=== PATIENT | female | born 1980 | race Caucasian/White ===

== ENCOUNTER → 2021-07-24 | Outpatient (CLI) | payer MEDICARE, BC ==
--- NOTE | 2021-07-24 14:29 | US ---
EXAMINATION TYPE: US abdomen complete DATE OF EXAM: 07/24/2021 COMPARISON: 07/07/2010 CLINICAL HISTORY: R10.12 LUQ PAIN. GB removed. Nausea x 5 days. EXAM MEASUREMENTS: Liver Length: 17.5 cm CBD: 0.9 cm Spleen: 11.5 cm Right Kidney: 9.0 x 4.3 x 4.0 cm Left Kidney: 10.2 x 4.8 x 5.1 cm Pancreas: Echogenic in appearance. Tail obscured by overlying bowel gas Liver: wnl Gallbladder: Surgically absent Evidence for sonographic Darling's sign: neg CBD: wnl Spleen: wnl Right Kidney: Inferior pole obscured by bowel gas Left Kidney: No hydronephrosis or masses seen Upper IVC: wnl Abd Aorta: No AAA visualized IMPRESSION: 1. Unremarkable post cholecystectomy abdomen ultrasound
== END | disposition home or self-care (01) ==
LOC: RADUSWWP 13:32
PROVIDERS: ATTEND Family Medicine
DX: R10.12 Left upper quadrant pain (principal); R11.0 Nausea; Z90.49 Acquired absence of other specified parts of digestive tract
CPT/HCPCS: 76700

== ENCOUNTER 2021-07-26 15:17 | Emergency (ER) | payer MEDICARE, BC ==
[2021-07-26 15:45] VITALS: BP 146/86; PULSE 122; RESP 20; TEMP 98.7
[2021-07-26] MEDS ORDERED: HYDROmorphone 1 MG/ML 1 ML SYRINGE IM STA (18:40)
--- NOTE | 2021-07-26 18:44 | ED ---
General Adult HPI - General Chief complaint: Neck Pain/Injury Stated complaint: neck pain Time Seen by Provider: 07/26/21 18:30 Source: patient, RN notes reviewed Mode of arrival: ambulatory Limitations: no limitations - History of Present Illness Initial comments: Patient is a pleasant 41-year-old female patient to the emergency Department with neck discomfort. Onset of symptoms was yesterday afternoon. Discomfort has been persistent. Discomfort increases with movement. No trauma. No history of chronic back problems however patient does have chronic pain associated with lupus and fibromyalgia. No weakness. No fever. - Related Data Home Medications Medication Instructions Recorded Confirmed ARIPiprazole [Abilify] 10 mg PO DAILY 07/26/21 07/26/21 Cetirizine HCl [Zyrtec] 10 mg PO DAILY 07/26/21 07/26/21 Cyclobenzaprine [Flexeril] 5 - 10 mg PO BID PRN 07/26/21 07/26/21 Desvenlafaxine Succinate [Pristiq 50 mg PO DAILY 07/26/21 07/26/21 ER] Dextroamphetamine/Amphetamine 10 mg PO BID 07/26/21 07/26/21 [Adderall] Dicyclomine [Bentyl] 10 mg PO TID PRN 07/26/21 07/26/21 Etodolac 400 mg PO DAILY PRN 07/26/21 07/26/21 Fluticasone Nasal [place] [Flonase 1 spray EA NOSTRIL DAILY PRN 07/26/21 07/26/21 Nasal [place]] Hydroxychloroquine Sulfate 400 mg PO BID 07/26/21 07/26/21 [Plaquenil] Loratadine [Claritin] 10 mg PO DAILY 07/26/21 07/26/21 Meclizine [Antivert] 25 mg PO DAILY PRN 07/26/21 07/26/21 Omeprazole 20 mg PO DAILY 07/26/21 07/26/21 Ondansetron Odt [Zofran Odt] 4 mg PO Q8HR PRN 07/26/21 07/26/21 clonazePAM [KlonoPIN] 0.5 mg PO BID PRN 07/26/21 07/26/21 Previous Rx's Medication Instructions Recorded Orphenadrine [Norflex] 100 mg PO Q12H PRN #15 tab 07/26/21 Allergies Allergy/AdvReac Type Severity Reaction Status Date / Time Latex, Natural Rubber Allergy Rash/Hives Verified 07/26/21 15:46 Review of Systems ROS Statement: Those systems with pertinent positive or pertinent negative responses have been documented in the HPI. ROS Other: All systems not noted in ROS Statement are negative. Constitutional: Denies: fever Eyes: Denies: eye pain ENT: Denies: ear pain Respiratory: Denies: cough, dyspnea Cardiovascular: Denies: chest pain Endocrine: Denies: fatigue Gastrointestinal: Denies: abdominal pain Musculoskeletal: Reports: as per HPI Skin: Denies: rash Neurological: Denies: headache Past Medical History Additional Past Medical History / Comment(s): Fibro.Lupus, OS, IBS History of Any Multi-Drug Resistant Organisms: None Reported Past Surgical History: No Surgical Hx Reported Smoking Status: Current every day smoker Past Alcohol Use History: Occasional Past Drug Use History: None Reported, Marijuana General Exam Limitations: no limitations General appearance: alert, in no apparent distress Head exam: Present: normocephalic Eye exam: Present: normal appearance ENT exam: Present: normal oropharynx Neck exam: Present: tenderness (Left sided neck extending to trapezius) Respiratory exam: Present: normal lung sounds bilaterally Cardiovascular Exam: Present: regular rate, normal rhythm GI/Abdominal exam: Present: soft. Absent: tenderness Extremities exam: Present: normal inspection Back exam: Present: tenderness (Left-sided trapezius) Neurological exam: Present: alert. Absent: motor sensory deficit Expanded Sensory exam: Upper Extremity Light Touch: Normal Motor strength exam: RUE: 5, LUE: 5 Eye Response: (4) open spontaneously Motor Response: (6) obeys commands Verbal Response: (5) oriented Psychiatric exam: Present: normal affect, normal mood Skin exam: Present: normal color Course Vital Signs 07/26/21 15:43 Temperature 98.7 F Pulse Rate 122 H Respiratory 20 Rate Blood Pressure 146/86 O2 Sat by Pulse 100 Oximetry Medical Decision Making - Medical Decision Making Patient reevaluated and improved with hydromorphone. Patient updated on results and need for follow-up. Patient requests a different muscle relaxer than what she takes normally. Patient advised not to take them together. She is on NSAIDs normally. - Radiology Data Radiology results: image reviewed (Cervical spine x-ray shows no acute process) Disposition Clinical Impression: Trapezius strain Disposition: HOME SELF-CARE Condition: Stable Instructions (If sedation given, give patient instructions): Cervical Strain (ED) Additional Instructions: Please follow-up with primary care physician in the next couple days for recheck. Restriction for muscle relaxer has been sent to pharmacy, do not use this with her other one. Return for weakness, worsening or change in symptoms, or other concerns. Prescriptions: Orphenadrine [Norflex] 100 mg PO Q12H PRN #15 tab PRN Reason: Muscle Pain Is patient prescribed a controlled substance at d/c from ED?: No Referrals: Laurita Mcbride MD [Primary Care Provider] - 1-2 days Time of Disposition: 20:19
--- NOTE | 2021-07-26 19:41 | XR ---
PROCEDURE: XR cervical spine comp - 5V DATE AND TIME: 07/26/2021 7:07 PM CLINICAL INDICATION: PHH; pain TECHNIQUE: Department protocol COMPARISON: None FINDINGS: There is no fracture or malalignment. The soft tissues are unremarkable. IMPRESSION: NO ACUTE PROCESS.
[2021-07-26] MEDS ORDERED: ACET/COD 300 MG/30 MG STARTER PACK 6 TAB BTL PO STA (20:20)
== END 2021-07-26 21:18 | disposition home or self-care (01) ==
LOC: EC 15:17
DX: S46.812A Strain of other muscles, fascia and tendons at shoulder and upper arm level, left arm, initial encounter (principal); F17.200 Nicotine dependence, unspecified, uncomplicated; Z79.899 Other long term (current) drug therapy; X58.XXXA Exposure to other specified factors, initial encounter
CPT/HCPCS: 72050; 99283; 96372; J1170

== ENCOUNTER 2022-02-07 21:04 | Emergency (ER) | payer BC, MEDICARE ==
[2022-02-07] MEDS ORDERED: ACETAMINOPHEN TAB 325 MG TAB PO STA (22:43)
[2022-02-07] MEDS ORDERED: SODIUM CHLORIDE 0.9% 500 ML 500 ML IV STA (22:43)
--- NOTE | 2022-02-07 22:59 | ED ---
General Adult HPI - General Chief complaint: Nausea/Vomiting/Diarrhea Stated complaint: N/V, Fever,Chills Time Seen by Provider: 02/07/22 22:15 Source: patient, family Mode of arrival: ambulatory Limitations: no limitations - History of Present Illness Initial comments: This patient is a 41-year-old woman who presents to have evaluation for which she suspects is a reaction to iron infusion. The patient states she has history of anemia and that her physician sent her to have iron infusion on Friday. The following day she started having some fevers, congestion, body aches, vomiting. Does have continued despite taking Tylenol. Onset/Timin -: days(s) Consistency: constant Improves with: none Worsens with: none Associated Symptoms: cough, nausea/vomiting Treatments Prior to Arrival: other (Tylenol) - Related Data Home Medications Medication Instructions Recorded Confirmed ARIPiprazole [Abilify] 10 mg PO DAILY 07/26/21 07/26/21 Cetirizine HCl [Zyrtec] 10 mg PO DAILY 07/26/21 07/26/21 Cyclobenzaprine [Flexeril] 5 - 10 mg PO BID PRN 07/26/21 07/26/21 Desvenlafaxine Succinate [Pristiq 50 mg PO DAILY 07/26/21 07/26/21 ER] Dextroamphetamine/Amphetamine 10 mg PO BID 07/26/21 07/26/21 [Adderall] Dicyclomine [Bentyl] 10 mg PO TID PRN 07/26/21 07/26/21 Etodolac 400 mg PO DAILY PRN 07/26/21 07/26/21 Fluticasone Nasal [place] [Flonase 1 spray EA NOSTRIL DAILY PRN 07/26/21 07/26/21 Nasal [place]] Hydroxychloroquine Sulfate 400 mg PO BID 07/26/21 07/26/21 [Plaquenil] Loratadine [Claritin] 10 mg PO DAILY 07/26/21 07/26/21 Meclizine [Antivert] 25 mg PO DAILY PRN 07/26/21 07/26/21 Omeprazole 20 mg PO DAILY 07/26/21 07/26/21 Ondansetron Odt [Zofran Odt] 4 mg PO Q8HR PRN 07/26/21 07/26/21 clonazePAM [KlonoPIN] 0.5 mg PO BID PRN 07/26/21 07/26/21 Previous Rx's Medication Instructions Recorded Orphenadrine [Norflex] 100 mg PO Q12H PRN #15 tab 07/26/21 Allergies Allergy/AdvReac Type Severity Reaction Status Date / Time Influenza Virus Vaccines Allergy Unknown Verified 02/07/22 21:46 Latex, Natural Rubber Allergy Rash/Hives Verified 02/07/22 21:46 Review of Systems ROS Statement: Those systems with pertinent positive or pertinent negative responses have been documented in the HPI. ROS Other: All systems not noted in ROS Statement are negative. Constitutional: Reports: fever, chills. Denies: weakness Eyes: Denies: eye pain, vision change ENT: Reports: congestion. Denies: ear pain, throat pain Respiratory: Reports: cough. Denies: dyspnea, wheezes, hemoptysis Cardiovascular: Denies: chest pain, palpitations, edema Gastrointestinal: Reports: nausea, vomiting. Denies: abdominal pain, diarrhea, constipation, hematemesis, melena, hematochezia Genitourinary: Denies: dysuria, frequency, hematuria Musculoskeletal: Reports: myalgia. Denies: back pain Skin: Denies: rash Neurological: Denies: headache, weakness, numbness Past Medical History Additional Past Medical History / Comment(s): Fibro.Lupus, OS, IBS History of Any Multi-Drug Resistant Organisms: None Reported Past Surgical History: No Surgical Hx Reported Past Psychological History: No Psychological Hx Reported Smoking Status: Current every day smoker Past Alcohol Use History: Occasional Past Drug Use History: None Reported, Marijuana General Exam Limitations: no limitations General appearance: alert, in no apparent distress Head exam: Present: atraumatic, normocephalic Eye exam: Present: normal appearance. Absent: scleral icterus, conjunctival injection Neck exam: Present: normal inspection, full ROM. Absent: meningismus Respiratory exam: Present: normal lung sounds bilaterally. Absent: respiratory distress, wheezes, rales, rhonchi, stridor Cardiovascular Exam: Present: normal rhythm, tachycardia, normal heart sounds. Absent: systolic murmur, diastolic murmur, rubs, gallop GI/Abdominal exam: Present: soft. Absent: distended, tenderness, guarding, rebound, rigid, mass Extremities exam: Present: normal inspection, normal capillary refill. Absent: pedal edema, calf tenderness Back exam: Present: normal inspection. Absent: CVA tenderness (R), CVA t enderness (L) Neurological exam: Present: alert Skin exam: Present: warm, dry, intact, normal color. Absent: rash Course Vital Signs 02/07/22 02/07/22 02/08/22 21:41 23:48 00:21 Temperature 101.3 F H 99.8 F H Pulse Rate 130 H 122 H Respiratory 20 18 Rate Blood Pressure 125/85 99/50 O2 Sat by Pulse 98 98 Oximetry Medical Decision Making - Medical Decision Making This patient is a 41-year-old woman presenting to have evaluation of fever, nausea and vomiting after an iron infusion. The workup here does not reveal any definite infection. Patient is feeling better after IV fluid and medication. I discussed admitting her overnight for further observation but the patient states she would prefer to go home. We discussed the appropriate further care and follow-up as well as return parameters. - Lab Data Result diagrams: 02/07/22 22:53 02/07/22 22:53 Lab Results 02/07/22 02/07/22 02/07/22 Range/Units 22:53 22:53 22:53 WBC 13.5 H (3.8-10.6) k/uL RBC 4.93 (3.80-5.40) m/uL Hgb 13.3 (11.4-16.0) gm/dL Hct 42.4 (34.0-46.0) % MCV 86.0 (80.0-100.0) fL MCH 26.9 (25.0-35.0) pg MCHC 31.3 (31.0-37.0) g/dL RDW 14.4 (11.5-15.5) % Plt Count 313 (150-450) k/uL MPV 7.9 Neutrophils % 86 % Lymphocytes % 9 % Monocytes % 3 % Eosinophils % 1 % Basophils % 1 % Neutrophils # 11.6 H (1.3-7.7) k/uL Lymphocytes # 1.2 (1.0-4.8) k/uL Monocytes # 0.4 (0-1.0) k/uL Eosinophils # 0.1 (0-0.7) k/uL Basophils # 0.1 (0-0.2) k/uL Sodium 138 (137-145) mmol/L Potassium 3.7 (3.5-5.1) mmol/L Chloride 104 (98-107) mmol/L Carbon Dioxide 22 (22-30) mmol/L Anion Gap 12 mmol/L BUN 8 (7-17) mg/dL Creatinine 1.05 H (0.52-1.04) mg/dL Est GFR (CKD-EPI)AfAm 77 (>60 ml/min/1.73 sqM) Est GFR (CKD-EPI)NonAf 67 (>60 ml/min/1.73 sqM) Glucose 115 H (74-99) mg/dL Plasma Lactic Acid Ziggy 1.8 (0.7-2.0) mmol/L Calcium 9.8 (8.4-10.2) mg/dL Total Bilirubin 0.6 (0.2-1.3) mg/dL AST 27 (14-36) U/L ALT 28 (4-34) U/L Alkaline Phosphatase 118 (38-126) U/L Total Protein 8.5 H (6.3-8.2) g/dL Albumin 5.2 H (3.5-5.0) g/dL Urine Color Urine Appearance (Clear) Urine pH (5.0-8.0) Ur Specific [place] (1.001-1.035) Urine Protein (Negative) Urine Glucose (UA) (Negative) Urine Ketones (Negative) Urine Blood (Negative) Urine Nitrite (Negative) Urine Bilirubin (Negative) Urine Urobilinogen (<2.0) mg/dL Ur Leukocyte Esterase (Negative) Urine RBC (0-5) /hpf Urine WBC (0-5) /hpf Ur Squamous Epith Cells (0-4) /hpf Amorphous Sediment (None) /hpf Urine Bacteria (None) /hpf Hyaline Casts (0-2) /lpf Urine Mucus (None) /hpf Coronavirus (PCR) (Not Detectd) Influenza Type A RNA (Not Detectd) Influenza Type B (PCR) (Not Detectd) 02/07/22 02/08/22 02/08/22 Range/Units 22:53 00:24 01:04 WBC (3.8-10.6) k/uL RBC (3.80-5.40) m/uL Hgb (11.4-16.0) gm/dL Hct (34.0-46.0) % MCV (80.0-100.0) fL MCH (25.0-35.0) pg MCHC (31.0-37.0) g/dL RDW (11.5-15.5) % Plt Count (150-450) k/uL MPV Neutrophils % % Lymphocytes % % Monocytes % % Eosinophils % % Basophils % % Neutrophils # (1.3-7.7) k/uL Lymphocytes # (1.0-4.8) k/uL Monocytes # (0-1.0) k/uL Eosinophils # (0-0.7) k/uL Basophils # (0-0.2) k/uL Sodium (137-145) mmol/L Potassium (3.5-5.1) mmol/L Chloride (98-107) mmol/L Carbon Dioxide (22-30) mmol/L Anion Gap mmol/L BUN (7-17) mg/dL Creatinine (0.52-1.04) mg/dL Est GFR (CKD-EPI)AfAm (>60 ml/min/1.73 sqM) Est GFR (CKD-EPI)NonAf (>60 ml/min/1.73 sqM) Glucose (74-99) mg/dL Plasma Lactic Acid Ziggy (0.7-2.0) mmol/L Calcium (8.4-10.2) mg/dL Total Bilirubin (0.2-1.3) mg/dL AST (14-36) U/L ALT (4-34) U/L Alkaline Phosphatase (38-126) U/L Total Protein (6.3-8.2) g/dL Albumin (3.5-5.0) g/dL Urine Color Light Brown Urine Appearance Turbid H (Clear) Urine pH 5.5 (5.0-8.0) Ur Specific [place] 1.031 (1.001-1.035) Urine Protein 2+ H (Negative) Urine Glucose (UA) Trace H (Negative) Urine Ketones Trace H (Negative) Urine Blood Moderate H (Negative) Urine Nitrite Negative (Negative) Urine Bilirubin Negative (Negative) Urine Urobilinogen 3.0 (<2.0) mg/dL Ur Leukocyte Esterase Negative (Negative) Urine RBC 2 (0-5) /hpf Urine WBC 2 (0-5) /hpf Ur Squamous Epith Cells 4 (0-4) /hpf Amorphous Sediment Occasional H (None) /hpf Urine Bacteria Occasional H (None) /hpf Hyaline Casts 38 H (0-2) /lpf Urine Mucus Many H (None) /hpf Coronavirus (PCR) Not Detected (Not Detectd) Influenza Type A RNA Not Detected (Not Detectd) Influenza Type B (PCR) Not Detected (Not Detectd) Disposition Clinical Impression: Fever Disposition: HOME SELF-CARE Condition: Good Instructions (If sedation given, give patient instructions): Fever in Adults (ED), Acute Nausea and Vomiting (ED) Is patient prescribed a controlled substance at d/c from ED?: No Referrals: Laurita Mcbride MD [Primary Care Provider] - 1-2 days Time of Disposition: 02:00
[2022-02-07] MEDS ORDERED: ONDANSETRON 4 MG/2 ML VIAL IVP STA (23:05)
--- NOTE | 2022-02-07 23:05 | XR ---
EXAMINATION TYPE: XR chest 1V portable DATE OF EXAM: 02/07/2022 COMPARISON: None HISTORY: Fever and cough TECHNIQUE: FINDINGS: Heart and mediastinum are normal. Lungs are clear. Diaphragm is normal. Bony thorax appears normal. IMPRESSION: Normal chest
[2022-02-07 23:48] VITALS: RESP 18
[2022-02-07 23:48] LABS: Basophils # (A) 0.1 k/uL (0-0.2); Basophils % (A) 1 %; Eosinophils # (A) 0.1 k/uL (0-0.7); Eosinophils % (A) 1 %; HCT 42.4 % (34.0-46.0); HGB 13.3 gm/dL (11.4-16.0); Lymphocytes # (A) 1.2 k/uL (1.0-4.8); Lymphocytes % (A) 9 %; MCH 26.9 pg (25.0-35.0); MCHC 31.3 g/dL (31.0-37.0); Mean Platelet Volume 7.9; Monocytes # (A) 0.4 k/uL (0-1.0); Monocytes % (A) 3 %; Neutrophils # (A) 11.6 k/uL (1.3-7.7); Neutrophils % (A) 86 %; Platelet Count 313 k/uL (150-450); RBC 4.93 m/uL (3.80-5.40); RDW 14.4 % (11.5-15.5); WBC 13.5 k/uL (3.8-10.6)
[2022-02-07 23:55] LABS: Albumin 5.2 g/dL (3.5-5.0); Calcium 9.8 mg/dL (8.4-10.2); Potassium 3.7 mmol/L (3.5-5.1); Total Bilirubin 0.6 mg/dL (0.2-1.3); Total Protein 8.5 g/dL (6.3-8.2)
[2022-02-08 00:58] LABS: Amorphous Sediment,Urine Occasional /hpf; Appearance,Urine Turbid (Clear); Bacteria,Urine Occasional /hpf; Bilirubin,Urine Negative (Negative); Blood,Urine Moderate (Negative); Color,Urine Light Brown; Glucose,Urine (UA) Trace (Negative); Hyaline Casts,Urine 38 /lpf (0-2); Ketones,Urine Trace (Negative); Leukocyte Esterase,Urine Negative (Negative); Mucus,Urine Many /hpf; Nitrite,Urine Negative (Negative); PH, Urine 5.5 (5.0-8.0); Protein,Urine 2+ (Negative); RBC,Urine 2 /hpf (0-5); Specific Gravity,Urine 1.031 (1.001-1.035); Squamous Epithelial Cell,Urine 4 /hpf (0-4); WBC,Urine 2 /hpf (0-5)
[2022-02-08 03:02] VITALS: BP 128/87; PULSE 105; TEMP 98.5
== END 2022-02-08 02:58 | disposition home or self-care (01) ==
LOC: EC 21:04
DX: R50.9 Fever, unspecified (principal); F17.200 Nicotine dependence, unspecified, uncomplicated; Z20.822 Contact with and (suspected) exposure to COVID-19; Z88.7 Allergy status to serum and vaccine; Z91.048 Other nonmedicinal substance allergy status
CPT/HCPCS: 36415; 80053; 83605; 85025; 81001; 87502; 87635; 71045; 99284; 96374; J2405

== ENCOUNTER 2022-05-19 15:23 | Emergency (ER) | payer BC, MEDICARE ==
[2022-05-19 15:37] VITALS: TEMP 99
--- NOTE | 2022-05-19 16:20 | XR ---
EXAMINATION TYPE: XR chest 2V DATE OF EXAM: 05/19/2022 COMPARISON: 02/07/2022 HISTORY: Cough TECHNIQUE: Frontal and lateral views of the chest are obtained. FINDINGS: There is no focal air space opacity, pleural effusion, or pneumothorax seen. The cardiac silhouette size is within normal limits. The osseous structures are intact. IMPRESSION: No acute cardiopulmonary process.
--- NOTE | 2022-05-19 16:28 | ED ---
General Adult HPI - General Chief complaint: Upper Respiratory Infection Stated complaint: JOSH Time Seen by Provider: 05/19/22 16:01 Source: patient, RN notes reviewed Mode of arrival: ambulatory Limitations: no limitations - History of Present Illness Initial comments: 42-year-old female presents emergency Department chief complaint cough congestion. Patient states she has been sick for last 4 days. Patient states that her cough is productive. Patient states she has recurrent bronchitis does admit that she is a daily smoker one pack per day. Patient has a chest pain she states she's had increased nasal congestion, fever, sore throat and bodyaches. Patient denies any sick contacts. - Related Data Home Medications Medication Instructions Recorded Confirmed ARIPiprazole [Abilify] 10 mg PO DAILY 07/26/21 07/26/21 Cetirizine HCl [Zyrtec] 10 mg PO DAILY 07/26/21 07/26/21 Cyclobenzaprine [Flexeril] 5 - 10 mg PO BID PRN 07/26/21 07/26/21 Desvenlafaxine Succinate [Pristiq 50 mg PO DAILY 07/26/21 07/26/21 ER] Dextroamphetamine/Amphetamine 10 mg PO BID 07/26/21 07/26/21 [Adderall] Dicyclomine [Bentyl] 10 mg PO TID PRN 07/26/21 07/26/21 Etodolac 400 mg PO DAILY PRN 07/26/21 07/26/21 Fluticasone Nasal [place] [Flonase 1 spray EA NOSTRIL DAILY PRN 07/26/21 07/26/21 Nasal [place]] Hydroxychloroquine Sulfate 400 mg PO BID 07/26/21 07/26/21 [Plaquenil] Loratadine [Claritin] 10 mg PO DAILY 07/26/21 07/26/21 Meclizine [Antivert] 25 mg PO DAILY PRN 07/26/21 07/26/21 Omeprazole 20 mg PO DAILY 07/26/21 07/26/21 Ondansetron Odt [Zofran Odt] 4 mg PO Q8HR PRN 07/26/21 07/26/21 clonazePAM [KlonoPIN] 0.5 mg PO BID PRN 07/26/21 07/26/21 Previous Rx's Medication Instructions Recorded Orphenadrine [Norflex] 100 mg PO Q12H PRN #15 tab 07/26/21 Albuterol Sulfate [Proair Hfa] 1 - 2 puff INHALATION Q4HR PRN 05/19/22 #8.5 gm Azithromycin [Zithromax Z Pack] 0 tab PO DIRECTED #6 tab 05/19/22 predniSONE 50 mg PO DAILY #5 tab 05/19/22 Allergies Allergy/AdvReac Type Severity Reaction Status Date / Time hydrocodone Allergy Unknown Verified 05/19/22 15:37 Influenza Virus Vaccines Allergy Unknown Verified 05/19/22 15:36 Latex, Natural Rubber Allergy Rash/Hives Verified 05/19/22 15:36 Review of Systems ROS Statement: Those systems with pertinent positive or pertinent negative responses have been documented in the HPI. ROS Other: All systems not noted in ROS Statement are negative. Past Medical History Additional Past Medical History / Comment(s): Fibro.Lupus, OS, IBS History of Any Multi-Drug Resistant Organisms: None Reported Past Surgical History: No Surgical Hx Reported Past Psychological History: No Psychological Hx Reported Smoking Status: Current every day smoker Past Alcohol Use History: Occasional Past Drug Use History: None Reported, Marijuana General Exam General appearance: alert, in no apparent distress Head exam: Present: atraumatic, normocephalic, normal inspection Eye exam: Present: normal appearance, PERRL, EOMI. Absent: scleral icterus, conjunctival injection, periorbital swelling ENT exam: Present: mucous membranes moist, TM's normal bilaterally. Absent: normal exam, normal oropharynx (Postnasal drainage) Neck exam: Present: normal inspection. Absent: tenderness, meningismus, lymphadenopathy Respiratory exam: Present: wheezes. Absent: normal lung sounds bilaterally, respiratory distress, rales, rhonchi, stridor Cardiovascular Exam: Present: normal rhythm, tachycardia, normal heart sounds. Absent: systolic murmur, diastolic murmur, rubs, gallop, clicks GI/Abdominal exam: Present: soft, normal bowel sounds. Absent: distended, tenderness, guarding, rebound, rigid Course Vital Signs 05/19/22 15:34 Temperature 99 F Pulse Rate 113 H Respiratory 20 Rate Blood Pressure 152/97 O2 Sat by Pulse 99 Oximetry Medical Decision Making - Medical Decision Making 6-year-old presented for cough and cold like symptoms. Patient does have low- grade temp, x-ray does not show any definite infiltrate, negative COVID-19. Patient does have audible wheezing we given steroids, breathing treatments discharged in stable condition. - Lab Data Lab Results 05/19/22 Range/Units 16:10 Coronavirus (PCR) Not Detected (Not Detectd) Disposition Clinical Impression: Tracheobronchitis Disposition: HOME SELF-CARE Condition: Stable Instructions (If sedation given, give patient instructions): Acute Bronchitis (ED) Additional Instructions: Please return to the Emergency Department if symptoms worsen or any other concerns. Prescriptions: predniSONE 50 mg PO DAILY #5 tab Albuterol Sulfate [Proair Hfa] 1 - 2 puff INHALATION Q4HR PRN #8.5 gm PRN Reason: difficulty in breathing Azithromycin [Zithromax Z Pack] 0 tab PO DIRECTED #6 tab Is patient prescribed a controlled substance at d/c from ED?: No Referrals: Laurita Mcbride MD [Primary Care Provider] - 1-2 days Time of Disposition: 17:08
[2022-05-19] MEDS ORDERED: IPRATROPIUM-ALBUTEROL 3 ML NEB INHALATION STA (17:06)
[2022-05-19] MEDS ORDERED: methylPREDNISolone SOD SUCCI 125 MG/2 ML VIAL IM ONE (17:06)
[2022-05-19 18:37] VITALS: BP 175/98; PULSE 120; RESP 18
== END 2022-05-19 18:36 | disposition home or self-care (01) ==
LOC: EC 15:23
DX: J40 Bronchitis, not specified as acute or chronic (principal); F17.200 Nicotine dependence, unspecified, uncomplicated; Z20.822 Contact with and (suspected) exposure to COVID-19; Z88.5 Allergy status to narcotic agent; Z88.7 Allergy status to serum and vaccine; Z91.040 Latex allergy status
CPT/HCPCS: 94640; 87635; 71046; 99285; 96372; J2930